=== PATIENT | female | born 2000 | race Caucasian/White ===

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

== ENCOUNTER 2020-07-02 20:58 | Emergency (ER) | payer BC, MEDICAID ==
[2020-07-02 21:37] LABS: Pregnancy Test - Urine (BHCG) POSITIVE (Negative); Pregu Control Background? CLEAR/WHITE (CLR/WHITE); Pregu Control Bar Appear? YES (CONTROL BAR); Specific Gravity 1.006 (1.002-1.036)
[2020-07-02 21:38] LABS: Bacteria/HPF 4+ HPF (None Seen); Bilirubin Negative (Negative); Blood, Urine 3+ (Negative); Clarity Turbid (Clear); Glucose, Urine (Dipstick) Normal (Negative); Ketone, Urine Negative (Negative); Leukocyte 75 Leu/uL (Negative); Nitrite Negative (Negative); Protein, Urine (Dipstick) 50 mg/dL (Neg-Trace); RBC/HPF 21-50 HPF (0-3); Specific Gravity, Urine 1.006 (1.002-1.036); Urobilinogen Normal mg/dL (Less than 2); pH, Urine 7.5 (5.0-9.0)
[2020-07-02 21:46] LABS: BHCG - Serum POSITIVE (NEGATIVE); Pregs Control Background? CLEAR/WHITE (CLR/WHITE); Pregs Control Bar Appear? YES (CONTROL BAR)
[2020-07-02 22:28] LABS: #Basophils 0.1 thou/uL (0.0-0.2); #Eosinphils 0.4 thou/uL (0.0-0.7); #Lymphocytes 3.3 thou/uL (1.20-3.40); #Monocytes 0.7 thou/uL (0.11-0.59); #Neutrophils 4.8 thou/uL (1.40-6.50); %Basophils 0.9 % (0.0-1.0); %Eosinophils 4.7 % (0.0-10.0); %Lymphocytes 35.8 % (28.0-48.0); %Monocytes 7.5 % (0.0-4.0); %Neutrophils 51.1 % (31.0-61.0); Hemoglobin 12.9 g/dL (12.0-16.0); Mean Corpuscular Hemoglobin 30.3 pg (25.0-35.0); Mean Platelet Volume 8.7 fL (7.4-10.4); Platelet Count 224 thou/uL (130-400); RBC Distribution Width 12.6 % (11.5-14.5); Red Blood Cell (RBC) Count 4.27 mill/uL (4.00-5.20); White Blood Cell (WBC) Count 9.3 thou/uL (4.8-10.8)
--- NOTE | 2020-07-03 00:10 | ULT ---
ULTRASOUND PELVIC DOPPLER DUPLEX: DATE: 07/02/2020 11:31 PM HISTORY: 19-year-old first trimester female with pelvic pain and heavy vaginal bleeding with blood cl ots TECHNIQUE: Transabdominal transducer used to visualize intrapelvic contents with grayscale, color-flow, and spec tral analysis. FINDINGS: Intrauterine gestational sac containing yolk sac and embryonic pole. Esperanza-rump length: 0.4 cm: 6 weeks 1 day gestational age. No embryonic heart activity detected. No obvious subchorionic hemorrhage. No free fluid in the cul-de-sac. Normal bilateral ovaries with blood flow demonstrated. IMPRESSION: First trimester intrauterine demise.
== END 2020-07-03 00:36 | disposition home or self-care (01) ==
LOC: ERS 20:58
DX: O03.4 Incomplete spontaneous abortion without complication (principal); O99.511 Diseases of the respiratory system complicating pregnancy, first trimester; J45.909 Unspecified asthma, uncomplicated; Z3A.08 8 weeks gestation of pregnancy
CPT/HCPCS: 36415; 76856; 81003; 81015; 81025; 84702; 84703; 85025; 86900; 86901; 87086; 93976

== ENCOUNTER 2020-07-22 21:52 | Emergency (ER) | payer BC, MEDICAID ==
--- NOTE | 2020-07-22 22:44 | CT ---
Head CT without contrast 07/22/2020: COMPARISON: 07/26/2018 HISTORY: Head pressure, prior brain surgeries, headache TECHNIQUE: Axial CT imaging at 5 mm intervals from vertex through skull base without contrast FINDINGS: The visualized paranasal sinuses and mastoid air cells appear well-aerated. There is no dis placed calvarial fracture noted. There is a calvarial defect anterior to the mastoid air cells on the left with a small retained segment of shunt tubing best seen on axial image 10, unchanged when co mpared to the 2019 examination. There is a low-density lesion within the middle cranial fossa on the left with Hounsfield units consistent with a cystic lesion. This lesion measures 3.9 cm in AP dim ension and 3.7 cm in transverse dimension, unchanged when compared to the 07/26/2018 exam. No intracranial hemorrhage. No acute findings. Impression: Stable head CT as detailed above. Findings in the left middle cranial fossa suggest a sta ble arachnoid cyst.
[2020-07-22 22:50] LABS: #Basophils 0.1 thou/uL (0.0-0.2); #Eosinphils 0.4 thou/uL (0.0-0.7); #Lymphocytes 3.8 thou/uL (1.20-3.40); #Monocytes 0.8 thou/uL (0.11-0.59); #Neutrophils 5.1 thou/uL (1.40-6.50); %Basophils 0.7 % (0.0-1.0); %Eosinophils 3.8 % (0.0-10.0); %Lymphocytes 37.3 % (28.0-48.0); %Monocytes 7.9 % (0.0-4.0); %Neutrophils 50.3 % (31.0-61.0); Hemoglobin 13.3 g/dL (12.0-16.0); Mean Corpuscular HGB CONC 33.9 g/dL (32.0-36.0); Mean Corpuscular Hemoglobin 30.3 pg (25.0-35.0); Mean Corpuscular Volume 89.3 fL (78.0-98.0); Mean Platelet Volume 8.2 fL (7.4-10.4); Platelet Count 227 thou/uL (130-400); RBC Distribution Width 11.9 % (11.5-14.5); Red Blood Cell (RBC) Count 4.39 mill/uL (4.00-5.20); White Blood Cell (WBC) Count 10.2 thou/uL (4.8-10.8)
[2020-07-22] MEDS ORDERED: Metoclopramide 10 MG/10 ML UDCUP ONE (22:53)
[2020-07-22] MEDS ORDERED: Metoclopramide HCl 10 MG/2 ML VIAL ONE (22:53)
[2020-07-22] MEDS ORDERED: Ketorolac Tromethamine 30 MG/ML VIAL ONE (22:53)
[2020-07-22 22:56] LABS: BHCG - Serum Negative (NEGATIVE); Pregs Control Background? CLEAR/WHITE (CLR/WHITE); Pregs Control Bar Appear? YES (CONTROL BAR)
[2020-07-22 23:12] LABS: ALT (SGPT) 15 U/L (8-55); AST (SGOT) 14 U/L (5-34); Albumin 4.4 g/dL (3.5-5.0); Alkaline Phosphatase 66 U/L (40-100); Anion Gap 15 mmol/L (10-20); BUN (Urea Nitrogen) 12 mg/dL (7.0-18.7); Bilirubin, Total 0.2 mg/dL (0.2-1.2); Calc. Creatinine Clearance 0 mL/min (70-130); Calcium 9.2 mg/dL (7.8-10.44); Carbon Dioxide 26 mmol/L (22-29); Chloride 103 mmol/L (98-107); Globulin 2.5 g/dL (2.4-3.5); Glucose 97 mg/dL (70-105); Potassium 3.8 mmol/L (3.5-5.1); Protein, Total 6.9 g/dL (6.0-8.3); Sodium 140 mmol/L (136-145)
[2020-07-22 23:34] LABS: Bilirubin Negative (Negative); Blood, Urine Negative (Negative); Clarity Turbid (Clear); Glucose, Urine (Dipstick) Normal (Negative); Ketone, Urine Negative (Negative); Leukocyte Negative Leu/uL (Negative); Nitrite Negative (Negative); Protein, Urine (Dipstick) Negative (Neg-Trace); Specific Gravity, Urine 1.016 (1.002-1.036); Urobilinogen Normal mg/dL (Less than 2); pH, Urine 6.5 (5.0-9.0)
== END 2020-07-23 00:08 | disposition home or self-care (01) ==
LOC: ERS 21:52
DX: R51.9 Headache, unspecified (principal)
CPT/HCPCS: 36415; 70450; 80053; 81003; 83735; 84703; 85025; 86140; 96365; 96375; J1885; J2765

== ENCOUNTER 2020-12-08 12:06 | Outpatient (CLI) | payer BC, MEDICAID ==
[~2020-12-08 12:06] MED LIST: Iopamidol 370 76% 100 ML VIAL ONE
== END 2020-12-08 12:07 | disposition home or self-care (01) ==
LOC: BICCT 12:06
PROVIDERS: ATTEND Internal Medicine Gastroenterology
DX: K21.9 Gastro-esophageal reflux disease without esophagitis (principal); R10.84 Generalized abdominal pain; R63.4 Abnormal weight loss; R63.0 Anorexia; R13.10 Dysphagia, unspecified; N28.9 Disorder of kidney and ureter, unspecified; N83.8 Other noninflammatory disorders of ovary, fallopian tube and broad ligament
CPT/HCPCS: 74177; Q9967

== ENCOUNTER 2021-02-22 | Emergency (ER) | payer BC, MEDICAID | END 2021-02-22 18:55 | disposition home or self-care (01) ==

== ENCOUNTER 2025-03-21 11:28 | Emergency (ER) | payer BC ==
[2025-03-21] MEDS ORDERED: Acetaminophen 500 MG TAB ONE (12:32)
[2025-03-21] MEDS ORDERED: Metoclopramide HCl 10 MG (2 mL) VIAL ONE (12:32)
[2025-03-21 13:02] LABS: Bacteria/HPF None Seen HPF (None Seen); CAUTI Indications for Culture Alt mental st,lethar; Glucose, Urine (Dipstick) Normal (Negative); Leukocyte Negative Leu/uL (Negative); Protein, Urine (Dipstick) Negative (Neg-Trace); RBC/HPF 0-3 HPF (0-3); Specific Gravity, Urine 1.004 (1.002-1.036); WBC/HPF 0-3 HPF (0-3)
[2025-03-21 13:03] LABS: %Eosinophils 8.9 % (0.0-10.0)
[2025-03-21 13:03] LABS: Urine Culture Reflex No No
[2025-03-21 13:13] LABS: #Basophils 0.05 10x3/uL (0.0-0.2); #Eosinophils 1.54 10x3/uL (0.0-0.7); #Monocytes 1.18 10x3/uL (0.11-0.59); #Neutrophils 11.53 10x3/uL (1.40-6.50); %Basophils 0.3 % (0.0-1.0); %Lymphocytes 17.0 % (21.0-51.0); %Monocytes 6.8 % (0.0-10.0); %Neutrophils 66.5 % (42.0-75.0); Hematocrit 37.6 % (36.0-47.0); Hemoglobin 12.5 g/dL (12.0-16.0); Mean Corpuscular Hemoglobin 28.6 pg (27.0-31.0); Mean Corpuscular Volume 86.0 fL (78.0-98.0); Platelet Count 293 10x3/uL (130-400); Red Blood Cell (RBC) Count 4.37 mill/uL (4.20-5.40); White Blood Cell (WBC) Count 17.33 10x3/uL (4.8-10.8)
[2025-03-21 13:17] LABS: ALT (SGPT) 12 U/L (Less than 34); AST (SGOT) 16 U/L (11-34); Albumin 3.8 g/dL (3.1-4.5); Alkaline Phosphatase 84 U/L (40-110); Anion Gap 14 mmol/L (10-20); BUN (Urea Nitrogen) 6 mg/dL (7.0-18.7); Bilirubin, Total 0.3 mg/dL (0.3-1.2); Calc. Creatinine Clearance 0 mL/min (70-130); Calcium 8.6 mg/dL (7.8-10.44); Carbon Dioxide 22 mmol/L (22-29); Chloride 110 mmol/L (98-107); Globulin 2.4 g/dL (2.4-3.5); Glucose 102 mg/dL (70-105); Potassium 3.7 mmol/L (3.5-5.1); Sodium 142 mmol/L (136-145)
== END 2025-03-21 14:21 | disposition home or self-care (01) ==
LOC: ERS 11:28
DX: J01.90 Acute sinusitis, unspecified (principal); F17.290 Nicotine dependence, other tobacco product, uncomplicated; F17.210 Nicotine dependence, cigarettes, uncomplicated
CPT/HCPCS: 70450; 80053; 81001; 85025; 96361; 96374; J2765